=== PATIENT | female | born 1985 | race Caucasian/White ===

== ENCOUNTER 2016-12-04 12:45 | Emergency (ER) | payer OTHER ==
--- NOTE | ~2016-12-04 | CR181 ---
[facility] A Service of [facility] RADIOLOGY TEXT RESULTS PATIENT: LAKIA MORALES LOCATION: SED : 85 UNIT #: [id number] AGE: [address]: Roman Westbrook MD SEX: F ORDER DR: [id number] [place] [id number] E MR#: [id number] Acc #: [id number] NAME: LAKIA MORALES : 1985 SEX: F STUDY DATE/TIME: 12/04/2016 12:42 UNIT: SED ROOM: STUDY DESCRIPTION: CR Lumbar Spine 2 or 3 Views Attending Physician: Roman Westbrook M.D. Ordering Physician: Roman Westbrook M.D. Primary Care Physician: Pavel Erickson Jr., A.P.R.N. MEDICAL IMAGING REPORT This report is preliminary unless electronic signature is present. EXAM Lumbar spine 3 view series HISTORY Low back pain for a month. COMPARISON 06/04/2012 FINDINGS AP and lateral projections of the lumbar segment show good mineralization of both anterior and posterior elements. They are all anatomically normal without indication of fracture, dislocation, or malignant change of a sclerotic or lytic type. There is no congenital defect noted. The sacroiliac joints are normal. IMPRESSION Normal lumbar spine. Dictated by... Roman Varghese M.D. THIS IS AN ELECTRONICALLY VERIFIED REPORT Roman Varghese M.D. at 12/05/2016 3:07 PM PRIYANK/rnr TD: 12/05/2016 06:32 JOB #: [id number] [facility] A Service of [facility] RADIOLOGY TEXT RESULTS PATIENT: LAKIA MORALES LOCATION: SED : [birth year] UNIT #: [id number] AGE: [address]: Roman Westbrook MD SEX: F ORDER DR: MEDICAL IMAGING REPORT
[~2016-12-04 12:45] MED LIST: AFRIN3 ML NS; BENADRYL25 MG PO; CIPRO PO; EPIPEN0.3 MG/0.1 IM; FLAGYL PO; IBUPROFEN PO; LORTAB 7.51 TAB 7.5/ PO; MOTRIN600 MG PO; NO MEDICATIONS; PEPCID AC20 MG PO; PREDNISONE10 MG PO; ULTRAM PO
== END 2016-12-04 13:58 | disposition home or self-care (01) ==
LOC: SED 12:45
DX: S33.9XXA Sprain of unspecified parts of lumbar spine and pelvis, initial encounter (principal); K21.9 Gastro-esophageal reflux disease without esophagitis; Z87.442 Personal history of urinary calculi; F17.210 Nicotine dependence, cigarettes, uncomplicated; Z91.040 Latex allergy status; Z91.013 Allergy to seafood; X50.0XXA Overexertion from strenuous movement or load, initial encounter; Y92.89 Other specified places as the place of occurrence of the external cause
CPT/HCPCS: 72100; 99283

== ENCOUNTER 2017-04-22 21:21 | Emergency (ER) | payer OTHER ==
--- NOTE | ~2017-04-22 | CR243 ---
[facility] A Service of [facility] RADIOLOGY TEXT RESULTS PATIENT: LAKIA MORALES LOCATION: [facility] : [birth year] UNIT #: [id number] AGE: [address]: Lashaun Merritt APRN SEX: F ORDER DR: [id number] [facility] [address] [place], [place] [address] [id number] E MR#: [id number] Acc #: [id number] NAME: LAKIA MORALES : 1985 SEX: F STUDY DATE/TIME: 04/22/2017 23:11 UNIT: [facility] ROOM: STUDY DESCRIPTION: CR Thoracic Spine 3 Views Attending Physician: Prabha Verma.P.RCoco Ordering Physician: Lashaun Merritt A.P.R.N. Primary Care Physician: Pavel Erickson Jr. A.P.R.NMk MEDICAL IMAGING REPORT This report is preliminary unless electronic signature is present EXAM 3 views thoracic spine DATE 04/14/2017 HISTORY Low back pain after lifting a box today. COMPARISON None FINDINGS AP and lateral examination of the dorsal segment shows normal mineralization and a satisfactory anatomical dorsal kyphosis. All body heights, interspaces, and posterior elements are normal anatomically without any indication of malignancy, trauma, unusual paraspinal soft tissue density mass, or congenital defect. IMPRESSION Normal thoracic spine. Dictated by... Desirae Shaw M.D. THIS IS AN ELECTRONICALLY VERIFIED REPORT Desirae Shaw M.D. at 04/23/2017 9:42 PM H/to TD: 04/23/2017 15:43 JOB #: [id number] MEDICAL IMAGING REPORT [facility] A Service of [facility] RADIOLOGY TEXT RESULTS PATIENT: LAKIA MORALES LOCATION: [facility] : [birth year] UNIT #: [id number] AGE: [address]: Lashaun Merritt APRN SEX: F ORDER DR: Page 1 of 1 COPY
--- NOTE | ~2017-04-22 | CR181 ---
[facility] A Service of [facility] RADIOLOGY TEXT RESULTS PATIENT: LAKIA MORALES LOCATION: [facility] : [birth year] UNIT #: [id number] AGE: [address]: Lashaun Merritt APRN SEX: F ORDER DR: [id number] [facility] [address] [place], [place] [address] [id number] E MR#: [id number] Acc #: [id number] NAME: LAKIA MORALES : 1985 SEX: F STUDY DATE/TIME: 04/22/2017 23:08 UNIT: [place] ROOM: STUDY DESCRIPTION: CR Lumbar Spine 2 or 3 Views Attending Physician: Gio VermaP.RCoco Ordering Physician: Lashaun Merritt A.P.R.N. Primary Care Physician: Pavel Erickson Jr. A.P.R.NMk MEDICAL IMAGING REPORT This report is preliminary unless electronic signature is present EXAM Three views of lumbar spine. DATE 04/22/2017 HISTORY Mid-back pain today after lifting a box. COMPARISON Lumbar spine series, 12/04/2016. FINDINGS AP and lateral projections of the lumbar segment show good mineralization of both anterior and posterior elements. They are all anatomically normal without indication of fracture, dislocation, or malignant change of a sclerotic or lytic type. There is no congenital defect noted. The sacroiliac joints are normal. IMPRESSION Normal 3 views of lumbar spine. Dictated by... Desirae Shaw M.D. THIS IS AN ELECTRONICALLY VERIFIED REPORT Desirae Shaw M.D. at 04/23/2017 9:42 PM LIVIER/alexa TD: 04/23/2017 16:02 JOB #: [id number] [facility] A Service of [facility] RADIOLOGY TEXT RESULTS PATIENT: LAKIA MORALES LOCATION: [facility] : [birth year] UNIT #: [id number] AGE: [address]: Lashaun Merritt APRN SEX: F ORDER DR: MEDICAL IMAGING REPORT Page 1 of 1 COPY
== END 2017-04-23 00:13 | disposition home or self-care (01) ==
LOC: CED 21:21 → CFTX 21:21
DX: S23.3XXA Sprain of ligaments of thoracic spine, initial encounter (principal); S33.5XXA Sprain of ligaments of lumbar spine, initial encounter; S39.012A Strain of muscle, fascia and tendon of lower back, initial encounter; J45.909 Unspecified asthma, uncomplicated; Z91.041 Radiographic dye allergy status; Z91.040 Latex allergy status; Z91.013 Allergy to seafood; Z88.8 Allergy status to other drugs, medicaments and biological substances; X50.9XXA Other and unspecified overexertion or strenuous movements or postures, initial encounter; Y92.69 Other specified industrial and construction area as the place of occurrence of the external cause; Y99.0 Civilian activity done for income or pay
CPT/HCPCS: 72072; 72100; 84703; 96372; 99284; J1885